=== PATIENT | male | born 1965 | race Caucasian/White ===

== ENCOUNTER 2018-12-18 06:56 | Day surgery (SDC) | payer OTHER ==
[2018-12-18] MEDS: DEXAMETHASONE 1 MG TAB PO (07:59)
[2018-12-18] MEDS: GABAPENTIN 300 MG CAP PO (07:59)
[2018-12-18] MEDS ORDERED: TRANEXAMIC ACID 1GM/100ML(PMX) 100 ML IVPB (08:00)
[2018-12-18] MEDS ORDERED: CEFAZOLIN 2 GM/50 ML (PMX) 50 ML IVPB (08:00)
[2018-12-18] MEDS ORDERED: MIDAZOLAM 1 MG/ML 2 ML INJ (08:01)
[2018-12-18] MEDS ORDERED: FENTAnyl 50 MCG/ML VIAL ×2 (08:01→10:27)
[2018-12-18] MEDS ORDERED: ONDANSETRON 4 MG INJ (08:01)
[2018-12-18] MEDS ORDERED: ROPIVACAINE 0.5 % 30 ML VIAL (08:01)
[2018-12-18] MEDS ORDERED: CEFAZOLIN 1 GM INJ (08:01)
[2018-12-18] MEDS ORDERED: DEXAMETHASONE 4 MG/ML 5 ML INJ (08:01)
[2018-12-18] MEDS ORDERED: ROCURONIUM 50 MG INJ (08:01)
[2018-12-18] MEDS ORDERED: GLYCOPYRROLATE 0.4 MG INJ (08:01)
[2018-12-18] MEDS ORDERED: NEOSTIGMINE 3 MG/3 ML SYRINGE (08:01)
[2018-12-18] MEDS ORDERED: PROPOFOL 20 ML (08:01)
[2018-12-18] MEDS: THROMBIN (BOVINE) 5,000 UNIT VIAL TP (09:02)
[2018-12-18] MEDS: CA CHLORIDE (GM) 10% 10 ML INJ (09:02)
[2018-12-18] MEDS: BUPIVACAINE 0.5%/EPI (SDV) 30 ML INJ (09:02)
[2018-12-18] MEDS: POLYMYXIN/BACITRACIN 1L IRRIG (09:02)
[2018-12-18] MEDS ORDERED: EPHEDrine SULFATE 50 MG/5 ML SYG IV (09:30)
[2018-12-18] MEDS ORDERED: FENTAnyl 50 MCG/ML VIAL IV ×3 (09:30)
[2018-12-18] MEDS ORDERED: BUPIVACAINE 0.5% (SDV) 30 ML, morphine SULFATE (PF) 8 MG, EPINEPHrine 0.3 MG, KETOROLAC... IRR (09:30)
[2018-12-18] MEDS ORDERED: TRIMETHOBENZAMIDE 100 MG/ML VIAL IM (09:30)
[2018-12-18] MEDS ORDERED: HYDROmorphONE 1 MG/5 ML IV SYRINGE IV ×3 (09:30)
[2018-12-18] MEDS ORDERED: OXYCODONE/ACETAMINOPHEN (5/325) TAB PO (09:30)
[2018-12-18] MEDS ORDERED: IPRATROPIUM (NEB) 0.5 MG/2.5 ML AMP HHN (09:30)
[2018-12-18] MEDS ORDERED: DIPHENHYDRAMINE 50 MG INJ IV (09:30)
[2018-12-18] MEDS ORDERED: MIDAZOLAM 1 MG/ML 2 ML INJ IV (09:30)
[2018-12-18] MEDS ORDERED: hydrALAzine 20 MG INJ IV (09:30)
[2018-12-18] MEDS ORDERED: ALBUTEROL 0.083% (NEB) 2.5 MG/3 ML AMP HHN (09:30)
[2018-12-18] MEDS ORDERED: TRANEXAMIC ACID 1GM/100ML(PMX) 200 ML (09:37)
[2018-12-18] MEDS ORDERED: THROMBIN (BOVINE) 5,000 UNIT VIAL TP (10:04)
[2018-12-18] MEDS ORDERED: CA CHLORIDE (GM) 10% 10 ML INJ (10:04)
[2018-12-18] MEDS: MEPERIDINE 25 MG INJ IV (11:30)
[2018-12-18] MEDS: LABETALOL HCL 20MG INJ IV (11:31)
[2018-12-18] MEDS: ONDANSETRON 4 MG INJ IV (11:49)
[2018-12-18] MEDS: OXYCODONE/ACETAMINOPHEN (5/325) TAB PO (12:48)
== END 2018-12-18 13:24 | disposition home or self-care (01) ==
LOC: SDS 06:56
DX: S42.031D Displaced fracture of lateral end of right clavicle, subsequent encounter for fracture with routine healing (principal); S43.101D Unspecified dislocation of right acromioclavicular joint, subsequent encounter; W11.XXXD Fall on and from ladder, subsequent encounter; J44.9 Chronic obstructive pulmonary disease, unspecified
CPT/HCPCS: 23552; 86999